=== PATIENT | male | born 1980 | race African-American/Black ===

== ENCOUNTER 2017-05-22 20:56 | Emergency (ER) | payer SELFPAY ==
[~2017-05-22] VITALS: Ht 170.2 cm; Wt 61.0 kg
[2017-05-22] MEDS ORDERED: METHYLPREDNISOLONE SOD SUCC 125 MG/2 ML VIAL IV STA (23:32)
[2017-05-22] MEDS ORDERED: IPRATROPIUM BROMIDE (0.02%) 0.5MG/2.5ML NEB HHN STA (23:32)
[2017-05-22] MEDS ORDERED: ALBUTEROL (0.083%) 2.5MG/3ML NEB HHN STA (23:32)
[2017-05-23 02:27] VITALS: BP 128/65
== END 2017-05-23 03:10 | disposition home or self-care (01) ==
LOC: ER 21:06
DX: J45.909 Unspecified asthma, uncomplicated (principal)
CPT/HCPCS: 94644; 96374; 99285; J2930; J7611; Z7610